=== PATIENT | male | born 1940 | race Caucasian/White ===

== ENCOUNTER 2018-09-14 07:30 | Emergency (ER) | payer OTHER ==
--- NOTE | 2018-09-14 07:12 | EDM.PDOC ---
ED HPI GENERAL MEDICAL PROBLEM - General Stated Complaint: AMBULANCE Time Seen by Provider: 09/14/18 07:12 Source of Information: Reports: Patient, EMS, EMS Notes Reviewed, RN, RN Notes Reviewed History Limitations: Reports: No Limitations - History of Present Illness INITIAL COMMENTS - FREE TEXT/NARRATIVE: Pt to ER per [facility] with c/o RUQ, RLQ pain. He states the pain began about 11pm last night. Patient denies chest pains, SOB, N/V/D, fever or chills. Patient states he last ate something about 1130 yesterday morning. Patient states last BM was yesterday at 1800 and was normal for him. Patient states history of diabetes, HTN. He states he thinks he still has his gallbladder and appendix. Onset: Gradual Right Lower Abdomen Pain Score (Numeric/FACES): 5 - Related Data Allergies Allergy/AdvReac Type Severity Reaction Status Date / Time No Known Allergies Allergy Verified 09/14/18 07:29 Home Meds: Home Meds Ascorbic Acid 500 mg PO DAILY 09/07/16 [History] Calcium Carbonate/Vitamin D3 [Calcium 250+D] 1 each PO DAILY 09/07/16 [History] Latanoprost [Xalatan 0.005% Ophth Soln] 1 drop EYEBOTH DAILY 09/07/16 [History] Timolol Maleate [Timoptic 0.5% Ophth Soln] 5 ml EYEBOTH DAILY 09/07/16 [History] Clopidogrel [Plavix] 75 mg PO DAILY 09/14/18 [History] Cyanocobalamin (Vitamin B12) [Vitamin B12] 1,000 mcg PO DAILY 09/14/18 [History] Gabapentin [Neurontin] 300 mg PO BID 09/14/18 [History] HCTZ/Triamterene [Maxzide 50-75 MG] 75 mg PO DAILY 09/14/18 [History] Pravastatin [Pravachol] 40 mg PO DAILY 09/14/18 [History] Ranitidine [Zantac] 150 mg PO BID 09/14/18 [History] metFORMIN HCl [Metformin HCl] 1,000 mg PO BID 09/14/18 [History] Past Medical History HEENT History: Reports: Cataract, Glaucoma Cardiovascular History: Reports: High Cholesterol, Hypertension, Other (See Below) Other Cardiovascular History: Bilateral carotid artery stenosis Gastrointestinal History: Reports: Diverticulosis Neurological History: Reports: Other (See Below) Other Neuro History: cerebral infarction Psychiatric History: Reports: PTSD Endocrine/Metabolic History: Reports: Diabetes, Type II ED ROS GENERAL - Review of Systems Review Of Systems: ROS reveals no pertinent complaints other than HPI. ED EXAM, GENERAL - Physical Exam Exam: See Below Exam Limited By: No Limitations General Appearance: Alert, WD/WN, No Apparent Distress Eye Exam: Bilateral Eye: EOMI, Normal Inspection Ears: Normal External Exam, Hearing Grossly Normal Nose: Normal Inspection Throat/Mouth: Normal Inspection, Normal Voice, No Airway Compromise Head: Atraumatic, Normocephalic Neck: Normal Inspection, Supple, Non-Tender, Full Range of Motion Respiratory/Chest: No Respiratory Distress, No Accessory Muscle Use, Chest Non- Tender, Decreased Breath Sounds Cardiovascular: Normal Peripheral Pulses, Regular Rate, Rhythm, No Edema, No Gallop, No JVD, No Murmur, No Rub Peripheral Pulses: 2+: Radial (L), Radial (R) GI/Abdominal: Normal Bowel Sounds, Soft, No Organomegaly, No Distention, No Abnormal Bruit, No Mass, Tender (RUQ, RLQ) (Male) Exam: Deferred Rectal (Males) Exam: Deferred Back Exam: Normal Inspection, Decreased Range of Motion Extremities: Normal Inspection, Normal Range of Motion, Non-Tender, No Pedal Edema, Normal Capillary Refill Neurological: Alert, Oriented, CN II-XII Intact, Normal Cognition, Normal Reflexes, No Motor/Sensory Deficits Psychiatric: Normal Affect, Normal Mood Skin Exam: Warm, Intact, Normal Color, No Rash, Diaphoretic Lymphatic: No Adenopathy Course - Vital Signs Last Recorded V/S: Last Vital Signs Temp 101.0 F H 09/14/18 18:43 Pulse 86 09/14/18 18:43 Resp 20 09/14/18 18:43 BP 132/67 09/14/18 18:43 Pulse Ox 92 L 09/14/18 18:57 - Orders/Labs/Meds Labs: Laboratory Tests 09/14/18 09/14/18 09/14/18 Range/Units 07:22 07:22 08:20 WBC 21.5 H (5.0-10.0) 10^3/uL RBC 5.54 (4.6-6.2) 10^6/uL Hgb 17.6 (14.0-18.0) g/dL Hct 51.0 (40.0-54.0) % MCV 92.1 (80-100) fL MCH 31.8 (27.0-34.0) pg MCHC 34.5 (33.0-35.0) g/dL Plt Count 190 (150-450) 10^3/uL Neut % (Auto) 89.7 H (42.2-75.2) % Lymph % (Auto) 5.5 L (20.5-50.1) % [place] % (Auto) 4.7 (2-8) % Eos % (Auto) 0.0 L (1.0-3.0) % Baso % (Auto) 0.1 (0.0-1.0) % Sodium 135 (135-145) mmol/L Potassium 3.2 L (3.6-5.0) mmol/L Chloride 103 (101-111) mmol/L Carbon Dioxide 18.0 L (21.0-31.0) mmol/L Anion Gap 17.2 BUN 20 H (7-18) mg/dL Creatinine 1.3 (0.6-1.3) mg/dL Est Cr Clr Drug Dosing 55.33 mL/min Estimated GFR (MDRD) 54 BUN/Creatinine Ratio 15.38 Glucose 177 H (74-105) mg/dL Lactic Acid 3.2 H (0.5-2.2) mmol/L Calcium 8.8 (8.4-10.2) mg/dl Total Bilirubin 1.8 H (0.2-1.0) mg/dL AST 125 H (10-42) IU/L ALT 80 H (10-60) IU/L Alkaline Phosphatase 63 (42-121) IU/L Troponin I < 0.02 (0.00-0.02) ng/ml Total Protein 6.9 (6.7-8.2) g/dl Albumin 4.1 (3.2-5.5) g/dl Globulin 2.8 Albumin/Globulin Ratio 1.46 Amylase 21 L (28-100) U/L Lipase 26 (22-51) U/L Urine Color (YELLOW) Urine Appearance (CLEAR) Urine pH (5.0-9.0) Ur Specific [place] (1.005-1.030) Urine Protein (NEGATIVE) Urine Glucose (UA) (NEGATIVE) Urine Ketones (NEGATIVE) Urine Occult Blood (NEGATIVE) Urine Nitrite (NEGATIVE) Urine Bilirubin (NEGATIVE) Urine Urobilinogen (0.2-1.0) mg/dL Ur Leukocyte Esterase (NEGATIVE) Urine RBC /HPF Urine WBC (0-5/HPF) /HPF Ur Epithelial Cells /HPF Amorphous Sediment (0/HPF) /HPF Urine Bacteria (0-FEW/HPF) /HPF Granular Casts /LPF 09/14/18 Range/Units 09:43 WBC (5.0-10.0) 10^3/uL RBC (4.6-6.2) 10^6/uL Hgb (14.0-18.0) g/dL Hct (40.0-54.0) % MCV (80-100) fL MCH (27.0-34.0) pg MCHC (33.0-35.0) g/dL Plt Count (150-450) 10^3/uL Neut % (Auto) (42.2-75.2) % Lymph % (Auto) (20.5-50.1) % [place] % (Auto) (2-8) % Eos % (Auto) (1.0-3.0) % Baso % (Auto) (0.0-1.0) % Sodium (135-145) mmol/L Potassium (3.6-5.0) mmol/L Chloride (101-111) mmol/L Carbon Dioxide (21.0-31.0) mmol/L Anion Gap BUN (7-18) mg/dL Creatinine (0.6-1.3) mg/dL Est Cr Clr Drug Dosing mL/min Estimated GFR (MDRD) BUN/Creatinine Ratio Glucose (74-105) mg/dL Lactic Acid (0.5-2.2) mmol/L Calcium (8.4-10.2) mg/dl Total Bilirubin (0.2-1.0) mg/dL AST (10-42) IU/L ALT (10-60) IU/L Alkaline Phosphatase (42-121) IU/L Troponin I (0.00-0.02) ng/ml Total Protein (6.7-8.2) g/dl Albumin (3.2-5.5) g/dl Globulin Albumin/Globulin Ratio Amylase (28-100) U/L Lipase (22-51) U/L Urine Color Yellow (YELLOW) Urine Appearance Cloudy (CLEAR) Urine pH 6.0 (5.0-9.0) Ur Specific [place] 1.020 (1.005-1.030) Urine Protein Negative (NEGATIVE) Urine Glucose (UA) 100 H (NEGATIVE) Urine Ketones Negative (NEGATIVE) Urine Occult Blood Trace-intact H (NEGATIVE) Urine Nitrite Negative (NEGATIVE) Urine Bilirubin Negative (NEGATIVE) Urine Urobilinogen 2.0 H (0.2-1.0) mg/dL Ur Leukocyte Esterase Small H (NEGATIVE) Urine RBC 0-5 /HPF Urine WBC 5-10 H (0-5/HPF) /HPF Ur Epithelial Cells Few /HPF Amorphous Sediment Many (0/HPF) /HPF Urine Bacteria Few (0-FEW/HPF) /HPF Granular Casts Moderate /LPF Meds: Medications Discontinued Medications Generic Name Dose Route Start Last Admin Trade Name Freq PRN Reason Stop Dose Admin Fentanyl 50 mcg 09/14/18 18:36 09/14/18 18:44 Sublimaze IVPUSH 09/14/18 18:37 50 mcg ONETIME ONE Administration Ceftriaxone Sodium 1 gm/ 50 mls @ 50 mls/hr 09/14/18 10:36 09/14/18 10:42 Sodium Chloride IV 09/14/18 11:35 50 mls/hr ONETIME ONE Administration Piperacillin Sod/Tazobactam 100 mls @ 200 mls/hr 09/14/18 10:36 09/14/18 11: 03 Sod 3.375 gm/ Sodium Chloride IV 09/14/18 11:05 200 mls/hr ONETIME ONE Administration Sodium Chloride 1,000 mls @ 999 mls/hr 09/14/18 10:36 09/14/18 10:42 Normal Saline IV 09/14/18 11:36 999 mls/hr .BOLUS ONE Administration Sodium Chloride 1,000 mls @ 200 mls/hr 09/14/18 14:45 09/14/18 15:29 Normal Saline IV 09/14/18 19:44 200 mls/hr .BOLUS ONE Administration Iopamidol 100 ml 09/14/18 13:20 09/14/18 13:34 Isovue-300 (61%) IVPUSH 09/14/18 13:21 Not Given ONETIME ONE Iopamidol 100 ml 09/14/18 14:22 09/14/18 14:34 Isovue-300 (61%) IVPUSH 09/14/18 14:23 100 ml ONETIME ONE Administration - Radiology Interpretation Free Text/Narrative:: Chest xray: FINDINGS: Lungs: .Heart size is within normal limits for technique. The aorta is tortuous but non-aneurysmal. Lung volumes are intermedia possibly due to poor inspiratory effort. There is no infiltrate or consolidation, effusion or pneumothorax. IMPRESSION: No acute chest disease. Thank you for allowing us to participate in the care of your patient. Dictated and Authenticated by: Jasen Wheatley MD 09/14/2018 8:10 AM Central Time ([place] & [place]) See rad report Gallbladder US: Gallbladder sludge and probable tiny gallstones. No gallbladder wall inflammation. Incomplete, fractional visualization of pancreas. See rad report Abdomen/Pelvis CT with contrast: Disease gallbladder. Sigmoid diverticulosis. No acute peritonitis or other intraperitoneal abnormality See rad report - Re-Assessments/Exams Free Text/Narrative Re-Assessment/Exam: 09/17/18 08:19 First discussed patient case with Dr. Jackson at [facility] who agreed to accept the patient for transfer. Patient transfer was delayed due to weather and lack of ambulance transport. Patient voiced that he would much rather go to [facility] in [place] if able. Patient case was then discussed with Dr. Wise at the [facility] who states the patient should be admitted under surgical services. Then discussed case with Dr. Almanzar, surgical services at [facility]. She states the patient will need to be admitted under the hospitalist first, then she will consult. Discussed the patient case with Dr. Wise again who agreed to accept the patient for transfer to [facility]. Departure - Departure Time of Disposition: :27 Disposition: DC/Tfer to [facility] 02 Reason for Transfer *Q: Other Condition: Fair Clinical Impression: Cholangitis Sepsis Qualifiers: Sepsis type: sepsis due to unspecified organism Qualified Code(s): A41.9 - Sepsis, unspecified organism Referrals: PCP,Not In Area [Primary Care Provider] - Forms: ED Department Discharge, Interfacility Transfer BON
[2018-09-14 08:11] LABS: ANION GAP 17.2; CHLORIDE,CL 103 mmol/L (101-111); SODIUM,NA 135 mmol/L (135-145)
[2018-09-14] MEDS ORDERED: cefTRIAXone 1 GM in Sodium Chloride 0.9% 50 ML IV ONE (10:36)
[2018-09-14] MEDS ORDERED: Sodium Chloride 0.9% 1,000 ML IV ONE ×2 (10:36→14:45)
[2018-09-14] MEDS ORDERED: Piperacillin/Tazobactam 3.375 GM in Sodium Chloride 0.9% 100 ML IV ONE (10:36)
--- NOTE | 2018-09-14 12:58 | US ---
Clinical history: 78-year-old male emergency department with right upper quadrant pain and abnormally elevated WBC (20,500). Interpretation: Gallbladder distended right upper quadrant has uniformly thin wall without sign of pericystic fluid, abnormal inflammatory wall thickening, or mucosal polyp. Note: Dependent mobile intraluminal echogenic "sludge" and apparent tiny stones mixed in the sludge. Homogeneous normal shoulder density the liver without sign discrete intrahepatic mass or abnormal dilatation of the intra/\\slash extra hepatic biliary ducts (common bile duct measures 4.9 mm). Proximal visualization grossly unremarkable pancreas. No ascites. CONCLUSION: Gallbladder sludge" and probable tiny gallstones. No gallbladder wall inflammation. Incomplete, fractional visualization of pancreas
[2018-09-14] MEDS ORDERED: Iopamidol 612 MG/ML 100 ML Bottle IVPUSH ONE ×2 (13:20→14:22)
--- NOTE | 2018-09-14 13:52 | CT ---
Clinical history: 78-year-old hypertensive afebrile 220 pound male with right quadrant pain, leukocytosis (WBC 20,500) and "sludge/cholelithiasis" on ultrasound (pancreas not well-seen). Scan technique: Volume acquisition of data from the abdomen and pelvis obtained without oral contrast but during/after intravenous administration 100 cc nonionic Isovue contrast (3 cc/s via injector) while patient was lying supine on the Siemens multi slice scanner [place], [place]. All data archived in the PACS system for storage, reformatting axial/sagittal/coronal planes and study. Interpretation: 1. Numerous diverticula sigmoid colon without associated signs of inflammation i.e. no pericolonic inflammatory "dirty" peritoneal fat, abscess or signs of mechanical bowel obstruction. No diverticulitis. 2. Distended gallbladder (RUQ) with dependent intraluminal "sludge/stones" but uniformly thin wall and no pericystic fluid. 3. Homogeneous dense fatty liver without discrete intrahepatic mass or intra/\\slash extrahepatic biliary duct dilatation. 4. Normal pancreas. 5. 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 No sign of pyelonephritis, urolithiasis, or obstructive uropathy. Symmetrically distended normal appearing urinary bladder. Prostate unremarkable for age. 6. 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 No paraspinal soft tissue mass, abscess, fracture or dislocation. No pathologic skeletal lesion. 7. Normal caliber aortoiliac vessels (atheromatous calcifications). No sign of aneurysm or dissection. CONCLUSION: Disease gallbladder. Sigmoid diverticulosis. No acute peritonitis or other intraperitoneal abnormality.
[2018-09-14] MEDS ORDERED: fentaNYL 100 MCG/2 ML SDV IVPUSH ONE (18:36)
== END 2018-09-14 19:15 ==
LOC: DL.ED 07:30
DX: A41.9 Sepsis, unspecified organism (principal); K83.09 Other cholangitis; E11.9 Type 2 diabetes mellitus without complications; I10 Essential (primary) hypertension; E78.00 Pure hypercholesterolemia, unspecified; Z79.899 Other long term (current) drug therapy; Z79.84 Long term (current) use of oral hypoglycemic drugs
CPT/HCPCS: 36415; 71045; 74177; 76705; 80053; 81001; 82150; 83605; 83690; 84484; 85025; 87040; 87077; 87086; 87088; 87186; 93005; 96365; 96366; 96368; 99285; J0696; J2543; J3010; J7030; J7050; Q9967

== ENCOUNTER 2020-04-29 13:10 | Emergency (ER) | payer OTHER ==
[2020-04-29] MEDS ORDERED: Sodium Chloride 0.9% 10 ML Syringe FLUSH PRN (13:56)
[2020-04-29] MEDS ORDERED: Ondansetron 4 MG/2 ML SDV IVPUSH ONE (13:56)
[2020-04-29 14:36] LABS: ANION GAP 16.2 mEq/L (7-13)
--- NOTE | 2020-04-29 14:46 | EDM.PDOC ---
ED HPI GENERAL MEDICAL PROBLEM - General Chief Complaint: Gastrointestinal Problem Stated Complaint: DIARREAH YELLOW VOMIT Time Seen by Provider: 04/29/20 13:35 Source of Information: Reports: Patient, RN, RN Notes Reviewed History Limitations: Reports: No Limitations - History of Present Illness INITIAL COMMENTS - FREE TEXT/NARRATIVE: Patient presents to the ED via personal vehicle with complaints of vomiting and diarrhea. The patient relates both symptoms began at approximately 0100 this morning. He states he is experienced "too many to count" bouts of vomiting and has had about 5-6 loose stools. He denies blood in either his vomit or stool; he denies dark tarry stools. He denies cough, shortness of breath, chest pain, palpitations, abdominal tenderness, fever, shaking chills, or recent illness. He has not taken any medications for this problem. - Related Data Allergies Allergy/AdvReac Type Severity Reaction Status Date / Time No Known Allergies Allergy Verified 04/29/20 13:25 Home Meds: Home Meds Ascorbic Acid 500 mg PO DAILY 09/07/16 [History] Calcium Carbonate/Vitamin D3 [Calcium 250+D] 1 each PO DAILY 09/07/16 [History] Latanoprost [Xalatan 0.005% Ophth Soln] 1 drop EYEBOTH DAILY 09/07/16 [History] Timolol Maleate [Timoptic 0.5% Ophth Soln] 5 ml EYEBOTH DAILY 09/07/16 [History] Clopidogrel [Plavix] 75 mg PO DAILY 09/14/18 [History] Cyanocobalamin (Vitamin B12) [Vitamin B12] 1,000 mcg PO DAILY 09/14/18 [History] Gabapentin [Neurontin] 300 mg PO BID 09/14/18 [History] HCTZ/Triamterene [Maxzide 50-75 MG] 75 mg PO DAILY 09/14/18 [History] Pravastatin [Pravachol] 40 mg PO DAILY 09/14/18 [History] Ranitidine [Zantac] 150 mg PO BID 09/14/18 [History] metFORMIN HCl [Metformin HCl] 1,000 mg PO BID 09/14/18 [History] Past Medical History HEENT History: Reports: Cataract, Glaucoma Other HEENT History: wears glasses Cardiovascular History: Reports: High Cholesterol, Hypertension, Other (See Below) Other Cardiovascular History: Bilateral carotid artery stenosis Respiratory History: Reports: None Gastrointestinal History: Reports: Diverticulosis Genitourinary History: Reports: None Musculoskeletal History: Reports: None Neurological History: Reports: Other (See Below) Other Neuro History: cerebral infarction Psychiatric History: Reports: PTSD Endocrine/Metabolic History: Reports: Diabetes, Type II Hematologic History: Reports: None Immunologic History: Reports: None Oncologic (Cancer) History: Reports: None Dermatologic History: Reports: None - Infectious Disease History Infectious Disease History: Reports: Chicken Pox, Measles, Mumps - Past Surgical History Head Surgeries/Procedures: Reports: None Social & Family History - Family History Family Medical History: Noncontributory - Tobacco Use Smoking Status *Q: Never Smoker Second Hand Smoke Exposure: No - Caffeine Use Caffeine Use: Reports: Coffee - Recreational Drug Use Recreational Drug Use: No ED ROS GENERAL - Review of Systems Review Of Systems: Comprehensive ROS is negative, except as noted in HPI. ED EXAM, GI/ABD - Physical Exam Exam: See Below Exam Limited By: No Limitations General Appearance: Alert, WD/WN, No Apparent Distress Throat/Mouth: Normal Inspection, Normal Voice, No Airway Compromise Neck: Normal Inspection, Supple, Non-Tender Respiratory/Chest: No Respiratory Distress, Lungs Clear, Normal Breath Sounds, No Accessory Muscle Use, Chest Non-Tender Cardiovascular: Regular Rate, Rhythm, No Edema, No Gallop, No JVD, No Murmur, No Rub GI/Abdominal Exam: Soft, Non-Tender, No Distention, No Mass. No: Normal Bowel Sounds (Hypoactive) (Male) Exam: Deferred Rectal (Males) Exam: Deferred Back Exam: Normal Inspection. No: CVA Tenderness (L), CVA Tenderness (R) Neurological: Alert, Oriented, CN II-XII Intact Skin Exam: Warm, Dry, Intact, Normal Color, No Rash Course - Vital Signs Last Recorded V/S: Last Vital Signs Temp 97.5 F 04/29/20 13:20 Pulse 109 H 04/29/20 13:20 Resp 18 04/29/20 13:20 BP 128/77 04/29/20 13:20 Pulse Ox 95 04/29/20 13:20 - Orders/Labs/Meds Orders: Active Orders 24 hr Category Date Time Status Peripheral IV Care [RC] . DIRECTED Care 04/29/20 13:56 Active UA W/SIENNA RFLX IF INDICATED [URIN] Stat Lab 04/29/20 15:25 Received Sodium Chloride 0.9% [Saline Flush] Med 04/29/20 13:56 Active 10 ml FLUSH ASDIRECTED PRN Peripheral IV Insertion Adult [OM.PC] Stat Oth 04/29/20 13:56 Ordered Medication Orders Sodium Chloride (Saline Flush) 10 ml FLUSH ASDIRECTED PRN PRN Reason: Keep Vein Open Last Admin: 04/29/20 14:22 Dose: 10 ml Documented by: ZAYRA Labs: Laboratory Tests 04/29/20 04/29/20 04/29/20 Range/Units 14:10 14:10 14:10 WBC 12.0 H (5.0-10.0) 10^3/uL RBC 5.73 (4.6-6.2) 10^6/uL Hgb 18.4 H (14.0-18.0) g/dL Hct 53.9 (40.0-54.0) % MCV 94.1 (80-100) fL MCH 32.1 (27.0-34.0) pg MCHC 34.1 (33.0-35.0) g/dL Plt Count 227 (150-450) 10^3/uL Neut % (Auto) 87.2 H (42.2-75.2) % Lymph % (Auto) 7.0 L (20.5-50.1) % [place] % (Auto) 5.4 (2-8) % Eos % (Auto) 0.2 L (1.0-3.0) % Baso % (Auto) 0.2 (0.0-1.0) % Sodium 137 (136-145) mmol/L Potassium 4.2 (3.5-5.1) mmol/L Chloride 101 (98-107) mmol/L Carbon Dioxide 24 (21-32) mmol/L Anion Gap 16.2 H (7-13) mEq/L BUN 19 H (7-18) mg/dL Creatinine 1.19 (0.70-1.30) mg/dL Est Cr Clr Drug Dosing 62.81 mL/min Estimated GFR (MDRD) 59 BUN/Creatinine Ratio 16.0 (No establ ref range) Glucose 158 H (74-99) mg/dL Calcium 8.7 (8.5-10.1) mg/dL Total Bilirubin 1.0 (0.2-1.0) mg/dL AST 44 H (15-37) U/L ALT 53 (16-63) U/L Alkaline Phosphatase 77 (46-116) U/L Total Protein 7.5 (6.4-8.2) g/dL Albumin 4.1 (3.4-5.0) g/dL Globulin 3.4 Albumin/Globulin Ratio 1.2 Amylase 34 (25-115) U/L Lipase 89 (73-393) U/L SARS CoV-2 RNA Rapid NADEEN (NEGATIVE) 04/29/20 Range/Units 15:02 WBC (5.0-10.0) 10^3/uL RBC (4.6-6.2) 10^6/uL Hgb (14.0-18.0) g/dL Hct (40.0-54.0) % MCV (80-100) fL MCH (27.0-34.0) pg MCHC (33.0-35.0) g/dL Plt Count (150-450) 10^3/uL Neut % (Auto) (42.2-75.2) % Lymph % (Auto) (20.5-50.1) % [place] % (Auto) (2-8) % Eos % (Auto) (1.0-3.0) % Baso % (Auto) (0.0-1.0) % Sodium (136-145) mmol/L Potassium (3.5-5.1) mmol/L Chloride (98-107) mmol/L Carbon Dioxide (21-32) mmol/L Anion Gap (7-13) mEq/L BUN (7-18) mg/dL Creatinine (0.70-1.30) mg/dL Est Cr Clr Drug Dosing mL/min Estimated GFR (MDRD) BUN/Creatinine Ratio (No establ ref range) Glucose (74-99) mg/dL Calcium (8.5-10.1) mg/dL Total Bilirubin (0.2-1.0) mg/dL AST (15-37) U/L ALT (16-63) U/L Alkaline Phosphatase (46-116) U/L Total Protein (6.4-8.2) g/dL Albumin (3.4-5.0) g/dL Globulin Albumin/Globulin Ratio Amylase (25-115) U/L Lipase (73-393) U/L SARS CoV-2 RNA Rapid NADEEN Negative (NEGATIVE) Meds: Medications Generic Name Dose Route Start Last Admin Trade Name Fe PRN Reason Stop Dose Admin Sodium Chloride 10 ml 04/29/20 13:56 04/29/20 14:22 Saline Flush FLUSH 10 ml ASDIRECTED PRN Administration Keep Vein Open Discontinued Medications Generic Name Dose Route Start Last Admin Trade Name Fe PRN Reason Stop Dose Admin Ondansetron HCl 4 mg 04/29/20 13:56 04/29/20 14:23 Zofran IVPUSH 04/29/20 13:57 4 mg ONETIME ONE Administration - Re-Assessments/Exams Free Text/Narrative Re-Assessment/Exam: 04/29/20 15:34 COVID screen negative. CBC and CMP unremarkable. Given the history and exam I find to reason for imaging of the abdomen. Departure - Departure Time of Disposition: 15:28 Disposition: Home, Self-Care 01 Condition: Good Clinical Impression: Gastroenteritis - Discharge Information *PRESCRIPTION DRUG MONITORING PROGRAM REVIEWED*: Not Applicable *COPY OF PRESCRIPTION DRUG MONITORING REPORT IN PATIENT CHRYSTAL: Not Applicable Instructions: Viral Gastroenteritis, Adult, [id number] Forms: ED Department Discharge Additional Instructions: Rx: Zofran COVID screen: Negative Follow a clear liquid diet until nausea and vomiting subsides. Sepsis Event Note (ED) - Evaluation Sepsis Screening Result: No Definite Risk - Focused Exam Vital Signs: Vital Signs Temp Pulse Resp BP Pulse Ox 04/29/20 13:20 97.5 F 109 H 18 128/77 95 - My Orders Last 24 Hours: My Active Orders 04/29/20 13:56 Peripheral IV Care [RC] . DIRECTED Sodium Chloride 0.9% [Saline Flush] 10 ml FLUSH ASDIRECTED PRN Peripheral IV Insertion Adult [OM.PC] Stat 04/29/20 15:25 UA W/SIENNA RFLX IF INDICATED [URIN] Stat - Assessment/Plan Last 24 Hours: My Active Orders 04/29/20 13:56 Peripheral IV Care [RC] . DIRECTED Sodium Chloride 0.9% [Saline Flush] 10 ml FLUSH ASDIRECTED PRN Peripheral IV Insertion Adult [OM.PC] Stat 04/29/20 15:25 UA W/SIENNA RFLX IF INDICATED [URIN] Stat
== END 2020-04-29 15:36 | disposition home or self-care (01) ==
LOC: DL.ED 13:10
DX: K52.9 Noninfective gastroenteritis and colitis, unspecified (principal); E78.00 Pure hypercholesterolemia, unspecified; I10 Essential (primary) hypertension; E11.9 Type 2 diabetes mellitus without complications; Z79.84 Long term (current) use of oral hypoglycemic drugs; Z79.899 Other long term (current) drug therapy; Z79.02 Long term (current) use of antithrombotics/antiplatelets; Z20.828 Contact with and (suspected) exposure to other viral communicable diseases
CPT/HCPCS: 36415; 80053; 81003; 82150; 83690; 85025; 87635; 96374; 99284; J2405; U0002

== ENCOUNTER 2021-08-10 04:26 | Emergency (ER) | payer OTHER ==
[2021-08-10 05:47] LABS: ANION GAP 18.2 mEq/L (7-13)
[2021-08-10] MEDS ORDERED: Sodium Chloride 0.9% 250 ML IV ONE (05:50)
[2021-08-10] MEDS ORDERED: Potassium Chloride 10 MEQ Tab.ER PO ONE (06:21)
[2021-08-10 06:37] LABS: CORONAVIRUS COVID-19 NAA NEGATIVE (NEGATIVE)
[2021-08-10] MEDS ORDERED: Sodium Chloride 0.9% 500 ML IV SCH (08:15)
== END 2021-08-10 08:57 | disposition home or self-care (01) ==
LOC: DL.ED 04:26
DX: I95.1 Orthostatic hypotension (principal); E78.00 Pure hypercholesterolemia, unspecified; I10 Essential (primary) hypertension; E11.9 Type 2 diabetes mellitus without complications; Z79.02 Long term (current) use of antithrombotics/antiplatelets; Z79.84 Long term (current) use of oral hypoglycemic drugs; Z79.899 Other long term (current) drug therapy; Z20.822 Contact with and (suspected) exposure to COVID-19
CPT/HCPCS: 0240U; 36415; 71045; 80053; 81001; 82272; 83605; 83880; 84484; 85025; 87040; 93005; 99285; A9270; J7040; J7050

== ENCOUNTER 2021-10-05 08:19 | Emergency (ER) | payer OTHER ==
[2021-10-05 09:55] LABS: ANION GAP 14.5 mEq/L (7-13); CHLORIDE,CL 106 mmol/L (98-107); SODIUM,NA 139 mmol/L (136-145)
[2021-10-05 10:26] LABS: CORONAVIRUS COVID-19 NAA NEGATIVE (NEGATIVE); RESPIRATORY SYNCYTIAL VIR NAA NEGATIVE (NEGATIVE)
== END 2021-10-05 12:24 | disposition home or self-care (01) ==
LOC: DL.ED 08:19
DX: J06.9 Acute upper respiratory infection, unspecified (principal); I10 Essential (primary) hypertension; E78.00 Pure hypercholesterolemia, unspecified; E11.9 Type 2 diabetes mellitus without complications; Z79.02 Long term (current) use of antithrombotics/antiplatelets; Z79.84 Long term (current) use of oral hypoglycemic drugs; Z79.899 Other long term (current) drug therapy; Z20.822 Contact with and (suspected) exposure to COVID-19
CPT/HCPCS: 0241U; 36415; 71045; 80053; 81003; 83605; 83880; 85025; 86140; 99283-25

== ENCOUNTER 2022-06-10 09:19 | Emergency (ER) | payer OTHER | END 2022-06-10 11:43 | disposition left against medical advice (07) | LOC: DL.ED 09:19 | DX: Z53.21 Procedure and treatment not carried out due to patient leaving prior to being seen by health care provider (principal) ==

== ENCOUNTER 2024-03-27 12:03 | Emergency (ER) | payer OTHER ==
[2024-03-27] MEDS ORDERED: Sodium Chloride 0.9% 10 ML Syringe FLUSH PRN (13:03)
[2024-03-27 13:20] LABS: BASOPHILS PERCENT AUTO 0.5 % (0.0-1.0); EOSINOPHILS PERCENT AUTO 2.1 % (1.0-3.0); HEMATOCRIT 46.9 % (40.0-54.0); HEMOGLOBIN 15.3 g/dL (14.0-18.0); LYMPHOCYTES PERCENT AUTO 29.2 % (20.5-50.1); MEAN CORPUSCULAR HEMOGLOBIN 31.1 pg (27.0-34.0); MEAN CORPUSCULAR HGB CONC 32.6 g/dL (33.0-35.0); MEAN CORPUSCULAR VOLUME 95.3 fL (80-100); MONOCYTES PERCENT AUTO 10.2 % (2-8); PLATELET COUNT,PLT 178 10^3/uL (150-450); RED BLOOD CELL COUNT 4.92 10^6/uL (4.6-6.2); WHITE BLOOD CELL COUNT,WBC 7.8 10^3/uL (5.0-10.0)
[2024-03-27 13:41] LABS: PROTHROMBIN TIME 10.6 SEC (9.0-12.0); PTT,PARTIAL THROMBOPLSTIN TIME 25.7 SEC (22.0-34.0)
[2024-03-27] MEDS: Pantoprazole 40 MG in Sodium Chloride 0.9% 100 ML IV SCH (13:42)
[2024-03-27] MEDS: Pantoprazole 40 MG Vial IVPUSH ONE (13:42)
[2024-03-27 15:22] LABS: A/G RATIO 1.2; ALANINE AMINOTRANSFERASE,ALT 18 U/L (16-63); ALBUMIN 3.4 g/dL (3.4-5.0); ALKALINE PHOSPHATASE 64 U/L (46-116); ANION GAP 16.2 mEq/L (7-13); ASPARTATE AMNIOTRANSFERASE,AST 14 U/L (15-37); BILIRUBIN TOTAL 0.4 mg/dL (0.2-1.0); BLOOD UREA NITROGEN,BUN 24 mg/dL (7-18); BUN/CREATININE RATIO 19.5 (No establ ref range); CALCIUM 8.6 mg/dL (8.5-10.1); CARBON DIOXIDE,CO2 20 mmol/L (21-32); CHLORIDE,CL 108 mmol/L (98-107); CREATININE 1.23 mg/dL (0.70-1.30); EST CRCL DRUG DOSING (CG) 53.83 mL/min; GLUCOSE RANDOM 107 mg/dL (70-99); LIPASE 42 U/L (16-77); POTASSIUM,K 4.2 mmol/L (3.5-5.1); PROTEIN TOTAL,TP 6.2 g/dL (6.4-8.2); SODIUM,NA 140 mmol/L (136-145)
[2024-03-27 15:23] LABS: C-REACTIVE PROTEIN < 0.50 ng/dL (<=0.50); ESTIMATED GFR 59 mL/min (>=60)
== END 2024-03-27 15:38 ==
LOC: DL.ED 12:03
DX: K92.2 Gastrointestinal hemorrhage, unspecified (principal); E78.00 Pure hypercholesterolemia, unspecified; I10 Essential (primary) hypertension; E11.9 Type 2 diabetes mellitus without complications; Z79.899 Other long term (current) drug therapy; Z88.8 Allergy status to other drugs, medicaments and biological substances
CPT/HCPCS: 36415; 80053; 83605; 83690; 84145; 85025; 85610; 85730; 86140; 87045; 87046; 87899; 96365; 96366; 99285; 99285-25; J2470; J3490

== ENCOUNTER 2025-04-18 13:08 | Emergency (ER) | payer OTHER ==
[2025-04-18 13:22] LABS: BASOPHILS PERCENT AUTO 0.3 % (0.0-1.0); EOSINOPHILS PERCENT AUTO 1.3 % (1.0-3.0); LYMPHOCYTES PERCENT AUTO 10.1 % (20.5-50.1); MONOCYTES PERCENT AUTO 11.1 % (2-8); NEUTROPHILS PERCENT AUTO 77.2 % (42.2-75.2); PLATELET COUNT,PLT 178 10^3/uL (150-450); RED BLOOD CELL COUNT 5.52 10^6/uL (4.6-6.2); WHITE BLOOD CELL COUNT,WBC 7.9 10^3/uL (5.0-10.0)
[2025-04-18 13:43] LABS: A/G RATIO 1.1; ALANINE AMINOTRANSFERASE,ALT 26 U/L (16-63); ASPARTATE AMNIOTRANSFERASE,AST 24 U/L (15-37); BILIRUBIN TOTAL 0.5 mg/dL (0.2-1.0); BLOOD UREA NITROGEN,BUN 21 mg/dL (7-18); CARBON DIOXIDE,CO2 24 mmol/L (21-32); CREATININE 1.31 mg/dL (0.70-1.30); EST CRCL DRUG DOSING (CG) 51.07 mL/min; GLUCOSE RANDOM 139 mg/dL (70-99); PROTEIN TOTAL,TP 7.4 g/dL (6.4-8.2)
[2025-04-18 13:44] LABS: LACTIC ACID 1.7 mmol/L (0.4-2.0)
[2025-04-18 13:46] LABS: POTASSIUM,K 4.2 mmol/L (3.5-5.1); SODIUM,NA 137 mmol/L (136-145)
[2025-04-18 13:50] LABS: CHLORIDE,CL 103 mmol/L (98-107)
[2025-04-18 13:55] LABS: ESTIMATED GFR 54 mL/min (>=60)
[2025-04-18 14:46] LABS: APPEARANCE,URINE CLEAR (CLEAR); GLUCOSE,URINE >=1000 (NEGATIVE); OCCULT BLOOD,URINE TRACE-INTACT (NEGATIVE)
[2025-04-18 14:57] LABS: EPITHELIAL CELLS,URINE FEW /HPF (NOT SEEN); YEAST,URINE FEW /HPF (NOT SEEN)
[2025-04-19] MEDS: Iopamidol 755 Mg/ML 100 ML Bottle IVPUSH ONE (07:03)
== END 2025-04-18 18:15 | disposition home or self-care (01) ==
LOC: DL.ED 13:08
DX: R10.9 Unspecified abdominal pain (principal); E78.00 Pure hypercholesterolemia, unspecified; I10 Essential (primary) hypertension; E11.9 Type 2 diabetes mellitus without complications; Z88.8 Allergy status to other drugs, medicaments and biological substances; Z79.899 Other long term (current) drug therapy; Z86.73 Personal history of transient ischemic attack (TIA), and cerebral infarction without residual deficits
CPT/HCPCS: 36415; 71045; 74174; 80053; 81001; 83605; 83735; 83880; 84443; 84484; 85025; 86140; 87086; 87088; 93005; 99285; Q9967